=== PATIENT | female | born 1950 | race Caucasian/White ===

== ENCOUNTER → 2017-02-15 | Outpatient (CLI) | payer OTHER | LOC: BMCIMAGING 17:17 | PROVIDERS: ATTEND Emergency Medicine | DX: S99.911A Unspecified injury of right ankle, initial encounter (principal); M77.31 Calcaneal spur, right foot ==

== ENCOUNTER → 2017-03-06 | Outpatient (CLI) | payer OTHER | LOC: BMCIMAGING 10:54 | PROVIDERS: ATTEND Family Medicine | DX: M19.042 Primary osteoarthritis, left hand (principal); M17.0 Bilateral primary osteoarthritis of knee ==

== ENCOUNTER 2017-03-14 18:10 | Emergency (ER) | payer OTHER ==
[2017-03-14 18:20] VITALS: BP 111/61; PULSE 63; RESP 18; TEMP 98.1; O2SAT 96
--- NOTE | 2017-03-14 18:45 | EDPHY ---
H & P Stated Complaint: Intermittent ROBBINS >3 weeks;numerous other c/o HPI/ROS: CHIEF COMPLAINT: Migraine, near-syncope, slurred speech, diarrhea HISTORY OF PRESENT ILLNESS: Patient says she has a history of migraine headaches. Over the past 3 weeks she has had at least 2 weeks. They are preceded by an aura. There are [id number]. They last varying durations. There are un known triggers. She had 1 Monday and then again today. Today's was preceded by an aura but then different than previous migraines. She had some near syncope, nausea and diarrhea. She also had a brief period of slurred speech and difficulty remembering things. This has nearly resolved after taking Tylenol. She has no headache at this time. The spouse sitting next to her says that she had no facial droop. She had no weakness of 1 side of the body. Her concern is that she tumor as this is different from previous headaches. She has no other associated complaints or modifying factors. REVIEW OF SYSTEMS: Ten systems reviewed and are negative unless otherwise noted in the HPI PERTINENT MEDICAL HISTORY: Migraines, Shade's disease, thyroid dysfunction EXAMINATION General Appearance: Alert, no distress Head: normocephalic, atraumatic Eyes: Pupils equal and round, no conjunctival pallor or injection. EOMs intact. No nystagmus. No dysconjugate gaze. ENT, Mouth: Mucous membranes moist. Uvula midline. No erythema or edema. Neck: Normal inspection, supple, non-tender. No crepitus. Painless range of motion all planes. Respiratory: Lungs are clear to auscultation. No wheezing, rhonchi or crackles. Cardiovascular: Regular rate and rhythm. No murmur. Pulses intact distally. Gastrointestinal: Abdomen is soft and nontender Back: non-tender, no bony abnormalities Neurological: GCS 15. No facial droop. A&O, nonfocal, normal gait. Strength is symmetric in all 4 limbs. No pronator drift. No dysmetria. NIH stroke scale: 0 Skin: Warm and dry, no rash. No petechiae or purpura. Extremities: Nontender, no pedal edema Psychiatric: Mood and affect normal DIFFERENTIAL DIAGNOSES: Including but not limited to migraine, cephalgia, near syncope, vertigo CVA, TIA , dehydration MDM: 6:42 p.m. Migraine headache with aura that preceded it. The patient says the symptoms are worse than previous, she also had new symptoms of some slurred speech, diarrhea and near syncope. Neuro exam is well within normal limits. NIH stroke scale is 0 at this time. No chest pain. Vital signs stable. Laboratory studies and MRI have been ordered. 7:03 p.m. Notified by RN that the patient would like to speak to me. I have re-evaluated the patient at this time she is asking to be discharged home. She wants to cancel all laboratory studies an MRI. We had a very lengthy discussion regarding this. She says she feels fine at this time and does not want to stay for the studies. She says she wants to be discharged home. I informed her that while I think that everything is normal at this time, that there is no way for me to provide formal diagnoses without the tests that were ordered. We discussed the risks, benefits and alternatives. These include worsening of her scenario, TIA, stroke and . They are comfortable with assuming these risks. They will return to the emergency department should her symptoms return. I do feel that she is capable of making this decision at this time. Her spouse the next there is also comfortable with her going home at this time. Stroke follow-up with her established physician Dr. Zamora. She will return to the emergency department for any return of headache, nausea us, difficulty with speech or syncope. SUPERVISION: This patient was independently evaluated without direct examination by the attending physician. Case was discussed with attending physician. Source: Patient, Family, Old records Exam Limitations: No limitations - Personal History Current Tetanus Diphtheria and Acellular Pertussis (TDAP): Yes - Medical/Surgical History Hx Asthma: No Hx Chronic Respiratory Disease: No Hx Diabetes: No Hx Cardiac Disease: No Hx Renal Disease: No Hx Cirrhosis: No Hx Alcoholism: No Hx HIV/AIDS: No Hx Splenectomy or Spleen Trauma: No Other PMH: Hashimotos, hypothyroid, Addisons, - Social History Smoking Status: Never smoked Constitutional: Initial Vital Signs Temperature (C) 98.1 F 03/14/17 18:15 Heart Rate 63 03/14/17 18:15 Respiratory Rate 18 03/14/17 18:15 Blood Pressure 111/61 03/14/17 18:15 O2 Sat (%) 96 03/14/17 18:15 O2 Delivery Mode Room Air Allergies/Adverse Reactions: Penicillins Allergy (Mild, Verified 03/14/17 18:20) Rash Home Medications: Medication Instructions Recorded Levothyroxine [Synthroid 100 mcg 100 mcg PO DAILY 03/07/15 (*)] Fludrocortisone Acetate [Florinef] 0.1 mg PO BID #60 tab 03/13/15 Hydrocortisone [Cortef 10 mg (*)] 40 mg PO DAILY #30 tab 03/13/15 Departure - Departure Disposition: Home, Routine, Self-Care Clinical Impression: Near syncope Migraine Qualifiers: Migraine type: with aura Status migrainosus presence: without status migrainosus Intractability: not intractable Qualified Code(s): G43.109 - Migraine with aura, not intractable, without status migrainosus Condition: Good Instructions: Acute Headache (ED) Additional Instructions: Return to the emergency department should she change her mind regarding the workup. Return to the emergency department immediately for return of headache, facial droop, weakness, difficulty with speech, sensory changes. Referrals: Daria Arrington MD [Primary Care Provider] - As per Instructions
== END 2017-03-14 19:14 | disposition home or self-care (01) ==
DX: R55 Syncope and collapse (principal); G43.109 Migraine with aura, not intractable, without status migrainosus

== ENCOUNTER → 2017-04-11 | Outpatient (CLI) | payer OTHER ==
[~2017-04-11] MED LIST: GADOBUTROL 10 ML VIAL IVP ONE
== END ==
LOC: FIMAGING 14:52
PROVIDERS: ATTEND Psychiatry & Neurology Neurology
DX: R51 Headache (principal); R47.89 Other speech disturbances
CPT/HCPCS: 70549; 70551; A9585

== ENCOUNTER → 2017-04-17 | Outpatient (CLI) | payer OTHER | LOC: BMCIMAGING 10:58 | PROVIDERS: ATTEND Internal Medicine Endocrinology, Diabetes & Metabolism | DX: Z13.820 Encounter for screening for osteoporosis (principal); M85.80 Other specified disorders of bone density and structure, unspecified site; Z92.241 Personal history of systemic steroid therapy ==

== ENCOUNTER → 2017-07-22 | Outpatient (CLI) | payer OTHER | LOC: BMCIMAGING 13:44 | PROVIDERS: ATTEND Family Medicine | DX: M79.89 Other specified soft tissue disorders (principal); R04.0 Epistaxis ==

== ENCOUNTER 2017-09-16 14:13 | Emergency (ER) | payer OTHER ==
[2017-09-16 14:20] VITALS: O2SAT 93
--- NOTE | 2017-09-16 14:53 | EDPHY ---
H & P Stated Complaint: abd since last night, took hydrocortisone 20mg Time Seen by Provider: 09/16/17 14:52 - Personal History Current Tetanus Diphtheria and Acellular Pertussis (TDAP): Yes - Medical/Surgical History Hx Asthma: No Hx Chronic Respiratory Disease: No Hx Diabetes: No Hx Cardiac Disease: No Hx Renal Disease: No Hx Cirrhosis: No Hx Alcoholism: No Hx HIV/AIDS: No Hx Splenectomy or Spleen Trauma: No Other PMH: Hashimotos, hypothyroid, Addisons, - Social History Smoking Status: Never smoked Constitutional: Initial Vital Signs Temperature (C) 36.9 C 09/16/17 14:16 Heart Rate 82 09/16/17 14:16 Respiratory Rate 20 09/16/17 14:16 Blood Pressure 93/56 L 09/16/17 14:16 O2 Sat (%) 93 09/16/17 14:16 O2 Delivery Mode Room Air Allergies/Adverse Reactions: Penicillins Allergy (Mild, Verified 03/14/17 18:20) Rash Home Medications: Medication Instructions Recorded Levothyroxine [Synthroid 100 mcg 100 mcg PO DAILY 03/07/15 (*)] Fludrocortisone Acetate [Florinef] 0.1 mg PO BID #60 tab 03/13/15 Hydrocortisone [Cortef 10 mg (*)] 40 mg PO DAILY #30 tab 03/13/15 Cephalexin [Keflex (RX)] 500 mg PO TID #30 cap 09/16/17 Medical Decision Making - Diagnostics Imaging Results: Imaging Impressions Abdomen CT 09/16/17 15:13 Impression: 1. Normal CT appearance of the adrenal glands, kidneys, and appendix. 2. There are some subcentimeter hypodensities in the liver, which are too-small- to-characterize, but statistically represent tiny cysts or hamartomas. 3. Retroverted, retroverted flexed uterus with some periuterine venous varices, consistent with pelvic venous congestion. 4. Old compression deformities associated with T12 and L1, unchanged from 2012. Findings were discussed with Mario Wang MD at 16:34, on 09/16/2017. Study: CT of the abdomen Indication: Right lower quadrant tenderness Results: CT scan of the body parts was obtained. The results of the study are normal. The study was read by the radiologist, Dr. Hammond. I viewed the images myself on the PACS system. Imaging: Discussed imaging studies w/ call or contact centre operator Radiologist, I viewed and interpreted images myself ED Course/Re-evaluation: CHIEF COMPLAINT: Hypercortisolism and abdominal pain HISTORY OF PRESENT ILLNESS: The patient is a 67 y/o female with a history of Shade's disease and hypothyroidism complaining of hypercortisolism and abdominal pain. Last night, she began experiencing chills. This morning, she began experiencing abdominal pain and "feels like she is out of it". She has been experiencing some nasal congestion off and on for a few days. She has associated constipation. She denies history of abdominal surgery, vomiting, diarrhea, cough, sore throat, dysuria, polyuria, or other associated symptoms. She doubled her dose of glucocorticoid this morning without improvement. REVIEW OF SYSTEMS: A 10 point review of systems was performed and is negative with the exception of the elements mentioned in the history of present illness. PHYSICAL EXAM: HR, BP, O2 Sat, RR. Temp noted General Appearance: Alert, well hydrated, appropriate, and non-toxic appearing. Head: Atraumatic without scalp tenderness or obvious injury Eyes: Pupils equal, round, reactive to light and accommodation, EOMI, no trauma , no injection. Ears: Clear bilaterally, no perforation, normal landmarks Nose: Atraumatic, no rhinorrhea, clear. Throat: There is no erythema or exudates, no lesions, normal tonsils, mucus membranes moist. Neck: Supple, 2+ carotid upstroke, nontender, no lymphadenopathy. Respiratory: No retractions, no distress, no wheezes, and no accessory muscle use. Lungs are clear to auscultation bilaterally. Cardiovascular: Regular rate and rhythm, no murmurs, rubs, or gallops. Bilateral carotid, radial, dorsalis pedis, and posterior tibial pulses intact. Good capillary refill all extremities. Gastrointestinal: Abdominal pain localized to the lower half and worst in the right lower quadrant. Abdomen is soft, non-distended, no masses, no rebound, no guarding, no peritoneal signs. Musculoskeletal: Normal active ROM of all extremities, atraumatic. Neurological: Alert, appropriate, and interactive. The patient has normal DTRs and non-focal cranial nerves, motor, sensory, and cerebellar exam. Skin: No rashes, good turgor, no nodules on palpation. Past medical history: Harleton's disease, hypothyroidism Past surgical history: Denies Family history: Non-contributory Social history: and daughter at bedside, lives in [place], retired DIAGNOSTICS/PROCEDURES/CRITICAL CARE TIME: DIFFERENTIAL DIAGNOSIS: The differential diagnosis for the patient's abdominal pain included but was not limited to hypercortisolism, ovarian cyst, pelvic inflammatory disease, ovarian torsion, urinary tract infection, ectopic , cholecystitis, and appendicitis. MEDICAL DECISION MAKING: The patient is a 67 y/o female complaining of hypocortisolism and abdominal pain. She takes steroids and replacement hormones. She has abdominal tenderness that is worse in the lower right quadrant. She has associated constipation. Plan for labs, imaging, and 1 L fluid after labs if sodium is within normal range. 1601: Patient was concerned about the radiation from CT. I explained the risks of not having the CT and she decided to go forward with the imaging. 1652: I reassessed patient and informed her of the results of her work-up. I provided her with a course of antibiotics and instructed her to increase her glucocorticoids until she consults with her high school foreign language tutor. Follow-up instructions and return precautions given. - Data Points Laboratory Results: Laboratory Results 09/16/17 14:32 09/16/17 14:32 09/16/17 09/16/17 09/16/17 15:45 14:32 14:32 WBC 5.28 10^3/uL 10^3/uL (3.80-9.50) RBC 4.67 10^6/uL 10^6/uL (4.18-5.33) Hgb 14.4 g/dL g/dL (12.6-16.3) Hct 40.7 % % (38.0-47.0) MCV 87.2 fL fL (81.5-99.8) MCH 30.8 pg pg (27.9-34.1) MCHC 35.4 g/dL g/dL (32.4-36.7) RDW 13.1 % % (11.5-15.2) Plt Count 153 10^3/uL 10^3/uL (150-400) MPV 11.0 fL fL (8.7-11.7) Neut % (Auto) 63.5 % % (39.3-74.2) Lymph % (Auto) 18.6 % % (15.0-45.0) [place] % (Auto) 14.8 % H % (4.5-13.0) Eos % (Auto) 2.1 % % (0.6-7.6) Baso % (Auto) 0.8 % % (0.3-1.7) Nucleat RBC Rel Count 0.0 % % (0.0-0.2) Absolute Neuts (auto) 3.36 10^3/uL 10^3/uL (1.70-6.50) Absolute Lymphs (auto) 0.98 10^3/uL L 10^3/uL (1.00-3.00) Absolute Monos (auto) 0.78 10^3/uL 10^3/uL (0.30-0.80) Absolute Eos (auto) 0.11 10^3/uL 10^3/uL (0.03-0.40) Absolute Basos (auto) 0.04 10^3/uL 10^3/uL (0.02-0.10) Absolute Nucleated RBC 0.00 10^3/uL 10^3/uL (0-0.01) Immature Gran % 0.2 % % (0.0-1.1) Immature Gran # 0.01 10^3/uL 10^3/uL (0.00-0.10) Sodium 135 mEq/L mEq/L (134-144) Potassium 3.7 mEq/L mEq/L (3.5-5.2) Chloride 102 mEq/L mEq/L (97-110) Carbon Dioxide 20 mEq/l L mEq/l (22-31) Anion Gap 13 mEq/L mEq/L (8-16) BUN 20 mg/dL mg/dL (7-23) Creatinine 0.8 mg/dL mg/dL (0.6-1.0) Estimated GFR > 60 Glucose 107 mg/dL H mg/dL (70-100) Calcium 9.6 mg/dL mg/dL (8.5-10.4) Total Bilirubin 0.6 mg/dL mg/dL (0.1-1.4) Conjugated Bilirubin 0.0 mg/dL mg/dL (0.0-0.5) Unconjugated Bilirubin 0.6 mg/dL mg/dL (0.0-1.1) AST 29 IU/L IU/L (14-46) ALT 36 IU/L IU/L (9-52) Alkaline Phosphatase 85 IU/L IU/L (38-126) Total Protein 6.4 g/dL g/dL (6.3-8.2) Albumin 4.1 g/dL g/dL (3.5-5.0) Lipase 124 IU/L IU/L (23-300) Urine Color JENNIFER Urine Appearance HAZY Urine pH 7.0 (5.0-7.5) Ur Specific [place] 1.026 (1.002-1.030) Urine Protein 1+ H (NEGATIVE) Urine Ketones 1+ H (NEGATIVE) Urine Blood NEGATIVE (NEGATIVE) Urine Nitrate NEGATIVE (NEGATIVE) Urine Bilirubin NEGATIVE (NEGATIVE) Urine Urobilinogen NEGATIVE EU EU (0.2-1.0) Ur Leukocyte Esterase 3+ H (NEGATIVE) Urine RBC 3-5 /hpf H /hpf (0-3) Urine WBC 25-50 /hpf H /hpf (0-3) Ur Epithelial Cells 2+ /lpf H /lpf (NONE-1+) Urine Mucus 1+ /lpf /lpf (NONE-1+) Urine Glucose NEGATIVE (NEGATIVE) Medications Given: Discontinued Medications Hydromorphone HCl (Dilaudid) 1 mg IVP EDNOW ONE Stop: 09/16/17 15:11 Last Admin: 09/16/17 15:43 Dose: Not Given Ondansetron HCl (Zofran) 4 mg IVP EDNOW ONE Stop: 09/16/17 15:11 Last Admin: 09/16/17 15:43 Dose: Not Given Departure - Departure Disposition: Home, Routine, Self-Care Clinical Impression: Adrenal insufficiency (Shade's disease) UTI (urinary tract infection) Qualifiers: Urinary tract infection type: site unspecified Hematuria presence: without hematuria Qualified Code(s): N39.0 - Urinary tract infection, site not specified Condition: Good Instructions: Urinary Tract Infection in Women (ED), Shade Disease (ED) Additional Instructions: 1. Take the full course of antibiotics. Continue taking even if you experience improvement before the course is complete. 2. Increase glucocorticoids as needed until you discuss with your high school foreign language tutor. 3. Follow-up with your primary care provider for unimproved symptoms in 2-3 days. 4. Return to the ED for worsening of condition. Referrals: Daria Arrington MD [Primary Care Provider] - As per Instructions Prescriptions: Cephalexin [Keflex (RX)] 500 mg PO TID #30 cap Report Scribed for: Mario Wang Report Scribed by: Robina Henry Date of Report: 09/16/17 Time of Report: 16:13
[2017-09-16] MEDS ORDERED: ONDANSETRON 4 MG/2 ML VIAL IVP ONE (15:10)
[2017-09-16] MEDS ORDERED: HYDROmorphONE/DILAUDID 1 MG/ML INJ IVP ONE (15:10)
[2017-09-16 15:20] LABS: % IMMATURE GRANULYOCYTES 0.2 % (0.0-1.1); ABSOLUTE IMMATURE GRANULOCYTES 0.01 10^3/uL (0.00-0.10); ADD DIFF? NO; ADD MORPH? NO; ADD SCAN? NO; ATYPICAL LYMPHOCYTE FLAG 30 (0-99); FRAGMENT RBC FLAG 0 (0-99); HEMATOCRIT 40.7 % (38.0-47.0); HEMOGLOBIN 14.4 g/dL (12.6-16.3); LEFT SHIFT FLG 0 (0-99); LIPEMIA HEMOLYSIS FLAG 90 (0-99); MEAN CELL HEMOGLOBIN 30.8 pg (27.9-34.1); MEAN CELL HEMOGLOBIN CONCENTR. 35.4 g/dL (32.4-36.7); MEAN CELL VOLUME 87.2 fL (81.5-99.8); PLATELET CLUMPS FLAG 20 (0-99); PLATELET COUNT 153 10^3/uL (150-400); RED BLOOD CELL COUNT 4.67 10^6/uL (4.18-5.33); RED CELL DISTRIBUTION WIDTH 13.1 % (11.5-15.2)
[2017-09-16] MEDS ORDERED: IOPAMIDOL (ISOVUE-300) 100 ML BTL ONE (15:21)
[2017-09-16 15:33] LABS: ALANINE AMINOTRANSFERASE 36 IU/L (9-52); ALBUMIN 4.1 g/dL (3.5-5.0); ALKALINE PHOSPHATASE 85 IU/L (38-126); ANION GAP 13 mEq/L (8-16); ASPARTATE AMINOTRANSFERASE 29 IU/L (14-46); BILIRUBIN,TOTAL 0.6 mg/dL (0.1-1.4); BILIRUBIN-UNCONJUGATED 0.6 mg/dL (0.0-1.1); CALCIUM 9.6 mg/dL (8.5-10.4); CARBON DIOXIDE 20 mEq/l (22-31); CHLORIDE 102 mEq/L (97-110); CREATININE 0.8 mg/dL (0.6-1.0); GLOMERULAR FILTRATION RATE > 60; GLUCOSE 107 mg/dL (70-100); POTASSIUM 3.7 mEq/L (3.5-5.2); SODIUM 135 mEq/L (134-144); TOTAL PROTEIN 6.4 g/dL (6.3-8.2)
[2017-09-16 15:53] LABS: COLOR AMBER; LEUKOCYTE ESTERASE,URINE 3+ (NEGATIVE); NITRITE,URINE NEGATIVE (NEGATIVE)
[2017-09-16 16:01] LABS: MUCUS 1+ /lpf (NONE-1+); WBC,URINE 25-50 /hpf (0-3)
[2017-09-16 17:20] VITALS: BP 110/65; PULSE 68; RESP 15; TEMP 99.3
== END 2017-09-16 17:28 | disposition home or self-care (01) ==
DX: E27.40 Unspecified adrenocortical insufficiency (principal); N39.0 Urinary tract infection, site not specified
CPT/HCPCS: 74177; 99285; Q9967; J1170; J2405

== ENCOUNTER 2017-09-17 11:52 | Observation (INO) | payer OTHER ==
[2017-09-17] MEDS ORDERED: NS 1,000 ML IV ONE (12:47)
--- NOTE | 2017-09-17 12:48 | EDPHY ---
HPI/HX/ROS/PE/MDM Narrative: CHIEF COMPLAINT: Dehydration, loss of appetite, cough HPI: The patient is a 67 y/o female with a history of Riverside's disease and hypothyroidism complaining of dehydration, loss of appetite, and cough. She was seen yesterday for abdominal pain and hypocortisolism and was diagnosed with a UTI after an abdominal CT. She was sent home with Keflex and instructed to increase glucocorticoids until she was able to consult with her automotive product specialist. Since going home yesterday she has had a loss of appetite and has not been drinking water or eating food and as such has not been able to have her steroids. She has an associated cough, dry mouth, and weakness. She denies pain or other associated symptoms. REVIEW OF SYSTEMS: Aside from elements discussed in the HPI, a comprehensive 10-point review of systems was reviewed and is negative. PMH: Riverside's disease, hypothyroidism, UTI diagnosed yesterday (09/16/17) SOCIAL HISTORY: at bedside, lives in [place], retired PHYSICAL EXAM: General:Patient is alert, appears somewhat lethargic and dehydrated ENT:Eyes are normal to inspection. ENT inspection normal. Dry mucus membranes. Neck: Normal inspection. Full range of motion. No meningeal signs. Respiratory: No respiratory distress. Breath sounds normal bilaterally. Cardiovascular: Regular rate and rhythm. Normal cap refill. Abdomen:The abdomen is nontender to palpation. There are no peritoneal signs. There are normal bowel sounds. Back: Normal to inspection. No tenderness to palpation. Skin: Normal color. No rash. Warm and dry. Extremities: Normal appearance. Full range of motion. Neuro: Oriented x3. Normal motor function. Normal sensory function. ED Course: Study: X-ray of the chest Indication: Cough Results: X-ray of the chest was obtained. The results of the study are: negative for acute processes The study was read by the radiologist, Dr. Anderson. I viewed the images myself on the PACS system. 1340: Patient tested positive for influenza. I plan to discuss results with her and her to determine if they feel comfortable providing care at home or would prefer admission. 1349: I reassessed patient and discussed results of workup. I presented her with the option to be admitted or return home. She would like to be admitted for further treatment. Plan for admission. 1408: I spoke to hospitalist service regarding admission for this patient. Dr. Michelle will be admitting doctor and will order steroids. MDM: This patient presents with signs and symptoms of influenza, confirmed by PCR. Her condition is complicated by UTI and history of Addisons' disease, and the combination appears to be making her quite dehydrated and unable to take oral meds for UTI and steroid replacement. She was given IVNS in the ED but remains somewhat ill-appearing and nauseated. I think she would benefit from continued IV hydration, IV steroid replacement and observation. Her lactate and CXR are normal, so I think severe sepsis, septic shock and PNA are all unlikely. - Data Points Imaging Results: Imaging Impressions Chest X-Ray 09/17/17 12:58 Impression: Negative chest.. Imaging: Discussed imaging studies w/ call or contact centre operator Radiologist, I viewed and interpreted images myself Laboratory Results: Laboratory Results 09/17/17 12:45 09/17/17 12:45 09/17/17 09/17/17 09/17/17 13:00 13:00 12:45 WBC RBC Hgb Hct MCV MCH MCHC RDW Plt Count MPV Neut % (Auto) Lymph % (Auto) [place] % (Auto) Eos % (Auto) Baso % (Auto) Nucleat RBC Rel Count Absolute Neuts (auto) Absolute Lymphs (auto) Absolute Monos (auto) Absolute Eos (auto) Absolute Basos (auto) Absolute Nucleated RBC Immature Gran % Immature Gran # VBG Lactic Acid 1.0 mmol/L mmol/L (0.7-2.1) Sodium 134 mEq/L mEq/L (134-144) Potassium 3.3 mEq/L L mEq/L (3.5-5.2) Chloride 100 mEq/L mEq/L (97-110) Carbon Dioxide 19 mEq/l L mEq/l (22-31) Anion Gap 15 mEq/L mEq/L (8-16) BUN 17 mg/dL mg/dL (7-23) Creatinine 0.9 mg/dL mg/dL (0.6-1.0) Estimated GFR > 60 Glucose 68 mg/dL L mg/dL (70-100) Calcium 9.1 mg/dL mg/dL (8.5-10.4) Nasal Influenza A PCR FLU A DETECTED H (NEGATIVE) Nasal Influenza B PCR NEGATIVE FOR FLU B (NEGATIVE) 09/17/17 12:45 WBC 6.03 10^3/uL 10^3/uL (3.80-9.50) RBC 4.70 10^6/uL 10^6/uL (4.18-5.33) Hgb 14.9 g/dL g/dL (12.6-16.3) Hct 41.1 % % (38.0-47.0) MCV 87.4 fL fL (81.5-99.8) MCH 31.7 pg pg (27.9-34.1) MCHC 36.3 g/dL g/dL (32.4-36.7) RDW 13.2 % % (11.5-15.2) Plt Count 136 10^3/uL L 10^3/uL (150-400) MPV 10.4 fL fL (8.7-11.7) Neut % (Auto) 59.7 % % (39.3-74.2) Lymph % (Auto) 25.7 % % (15.0-45.0) [place] % (Auto) 13.4 % H % (4.5-13.0) Eos % (Auto) 0.5 % L % (0.6-7.6) Baso % (Auto) 0.5 % % (0.3-1.7) Nucleat RBC Rel Count 0.0 % % (0.0-0.2) Absolute Neuts (auto) 3.60 10^3/uL 10^3/uL (1.70-6.50) Absolute Lymphs (auto) 1.55 10^3/uL 10^3/uL (1.00-3.00) Absolute Monos (auto) 0.81 10^3/uL H 10^3/uL (0.30-0.80) Absolute Eos (auto) 0.03 10^3/uL 10^3/uL (0.03-0.40) Absolute Basos (auto) 0.03 10^3/uL 10^3/uL (0.02-0.10) Absolute Nucleated RBC 0.00 10^3/uL 10^3/uL (0-0.01) Immature Gran % 0.2 % % (0.0-1.1) Immature Gran # 0.01 10^3/uL 10^3/uL (0.00-0.10) VBG Lactic Acid Sodium Potassium Chloride Carbon Dioxide Anion Gap BUN Creatinine Estimated GFR Glucose Calcium Nasal Influenza A PCR Nasal Influenza B PCR Medications Given: Acetaminophen (Tylenol) 650 mg PO Q4HRS PRN PRN Reason: Pain, Mild/Fever, Can Take PO Stop: 03/16/18 14:36 Last Admin: 09/17/17 15:11 Dose: 650 mg Discontinued Medications Sodium Chloride (Ns) 1,000 mls @ 0 mls/hr IV EDNOW ONE; Wide Open PRN Reason: Protocol Stop: 09/17/17 12:48 Last Admin: 09/17/17 12:50 Dose: 1,000 mls General Time Seen by Provider: 09/17/17 12:43 Initial Vital Signs: Initial Vital Signs Temperature (C) 37.1 C 09/17/17 11:58 Heart Rate 105 H 09/17/17 11:58 Respiratory Rate 16 09/17/17 11:58 Blood Pressure 117/78 09/17/17 11:58 O2 Sat (%) 90 L 09/17/17 11:58 O2 Delivery Mode Room Air Allergies/Adverse Reactions: Penicillins Allergy (Mild, Verified 03/14/17 18:20) Rash Home Medications: Medication Instructions Recorded Fludrocortisone Acetate [Florinef] 0.1 mg PO DAILY 09/17/17 Hydrocortisone [Cortef 10 mg (*)] 10 mg PO DAILY 09/17/17 Levothyroxine [Synthroid 112 mcg 112 mcg PO DAILY06 09/17/17 (*)] Acetaminophen [Tylenol 325mg (*)] 650 mg PO Q4HRS PRN tab 09/18/17 Oseltamivir Phosphate [Tamiflu 75 75 mg PO BIDMEAL #7 cap 09/18/17 mg (*)] guaiFENesin [Mucinex 600 MG (*)] 600 mg PO BID tab.er 09/18/17 Departure - Departure Disposition: [facility] Clinical Impression: Influenza, Shade's disease, Dehydration Condition: Fair Report Scribed for: Pierre Villanueva Report Scribed by: Robina Henry Date of Report: 09/17/17 Time of Report: 12:48 Physician Review and Approval Statement: Portions of this note were transcribed by an ED scribe. I personally performed the history, physical exam, and medical decision making; and confirm the accuracy of the information in the transcribed note.
[2017-09-17 12:56] LABS: % IMMATURE GRANULYOCYTES 0.2 % (0.0-1.1); ABSOLUTE IMMATURE GRANULOCYTES 0.01 10^3/uL (0.00-0.10); ADD DIFF? NO; ADD MORPH? NO; ADD SCAN? NO; ATYPICAL LYMPHOCYTE FLAG 0 (0-99); FRAGMENT RBC FLAG 0 (0-99); HEMATOCRIT 41.1 % (38.0-47.0); HEMOGLOBIN 14.9 g/dL (12.6-16.3); LEFT SHIFT FLG 0 (0-99); LIPEMIA HEMOLYSIS FLAG 90 (0-99); MEAN CELL HEMOGLOBIN 31.7 pg (27.9-34.1); MEAN CELL HEMOGLOBIN CONCENTR. 36.3 g/dL (32.4-36.7); MEAN CELL VOLUME 87.4 fL (81.5-99.8); MEAN PLATELET VOLUME 10.4 fL (8.7-11.7); PLATELET CLUMPS FLAG 30 (0-99); PLATELET COUNT 136 10^3/uL (150-400); RED CELL DISTRIBUTION WIDTH 13.2 % (11.5-15.2)
[2017-09-17 13:16] LABS: ANION GAP 15 mEq/L (8-16); CALCIUM 9.1 mg/dL (8.5-10.4); CARBON DIOXIDE 19 mEq/l (22-31); CHLORIDE 100 mEq/L (97-110); CREATININE 0.9 mg/dL (0.6-1.0); GLOMERULAR FILTRATION RATE > 60; GLUCOSE 68 mg/dL (70-100); POTASSIUM 3.3 mEq/L (3.5-5.2); SODIUM 134 mEq/L (134-144)
[2017-09-17 13:35] LABS: PRINT OR CALL CRITICALS C
[2017-09-17] MEDS ORDERED: ONDANSETRON 4 MG/2 ML VIAL IVP PRN (14:37)
[2017-09-17] MEDS ORDERED: oxyCODONE IR 5 MG TAB PO PRN (14:37)
[2017-09-17] MEDS ORDERED: PROMETHAZINE HCL 25 MG/ML INJ IVP PRN (14:37)
[2017-09-17] MEDS ORDERED: ONDANSETRON DISINTEGRATING 4 MG TAB PO PRN (14:37)
--- NOTE | 2017-09-17 14:44 | PDGENHP ---
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 She initially was seen in the ER yesterday for these sxs, an abd CT was performed as was a UA. UA was notable for slightly elevated wbc and she was treated for UTI with home rx for keflex. She also was instructed to double her dose of hydrocortisone for possible trigger of AI. Despite doing that, she felt worse over the following 24 hours. Continued abdominal pain, inability to take PO and fever. Today she was unable to take any of her meds due to abdominal pain as well as n/v. She notes these sxs are similar to her prior bouts of AI. She has not been around anyone sick. She did not get a flu shot this year. History Information - Allergies/Home Medication List Allergies/Adverse Reactions: Penicillins Allergy (Mild, Verified 03/14/17 18:20) Rash Home Medications: Fludrocortisone Acetate [Florinef] 0.1 mg PO DAILY 09/17/17 [Last Taken 09/16/17 ] Hydrocortisone [Cortef 10 mg (*)] 10 mg PO DAILY 09/17/17 [Last Taken 09/16/17] Levothyroxine [Synthroid 112 mcg (*)] 112 mcg PO DAILY06 09/17/17 [Last Taken ] I have personally reviewed and updated: family history, medical history, social history, surgical history - Past Medical History Additional medical history: Loami's disease. hypothyroid. chronic sacral/ knee pain. T12/L1 compression injuries - Surgical History Reports: no pertinent surgical hx - Family History Additional family history: Mother in her 80s, complications of dementia - Social History Smoking Status: Never smoked Alcohol Use: Rarely Drug Use: None Additional social history: , 2 children, retired Review of Systems Review of Systems: ROS: 10pt was reviewed & negative except for what was stated in HPI & below Physical Exam Physical Exam: Temp Pulse Resp BP Pulse Ox 38.8 C H 94 20 117/67 95 09/17/17 14:33 09/17/17 14:33 09/17/17 14:33 09/17/17 14:33 09/17/17 14:33 Constitutional: appears nourished, uncomfortable Eyes: PERRL, anicteric sclera Ears, Nose, Mouth, Throat: hearing normal, dry mucous membranes Cardiovascular: regular rate and rhythym, no murmur, rub, or gallop, No edema Respiratory: no respiratory distress, no rales or rhonchi Gastrointestinal: normoactive bowel sounds, tenderness, No guarding, No rebound , No distension Genitourinary: no bladder tenderness Skin: warm, normal color Musculoskeletal: no muscle tenderness Neurologic: AAOx3 Psychiatric: not anxious, flat affect, other (minimally interactive) Lab Data & Imaging Review 09/17/17 12:45 09/17/17 12:45 WBC 6.03 10^3/uL (3.80-9.50) 09/17/17 12:45 RBC 4.70 10^6/uL (4.18-5.33) 09/17/17 12:45 Hgb 14.9 g/dL (12.6-16.3) 09/17/17 12:45 Hct 41.1 % (38.0-47.0) 09/17/17 12:45 MCV 87.4 fL (81.5-99.8) 09/17/17 12:45 MCH 31.7 pg (27.9-34.1) 09/17/17 12:45 MCHC 36.3 g/dL (32.4-36.7) 09/17/17 12:45 RDW 13.2 % (11.5-15.2) 09/17/17 12:45 Plt Count 136 10^3/uL (150-400) L 09/17/17 12:45 MPV 10.4 fL (8.7-11.7) 09/17/17 12:45 Neut % (Auto) 59.7 % (39.3-74.2) 09/17/17 12:45 Lymph % (Auto) 25.7 % (15.0-45.0) 09/17/17 12:45 Maries % (Auto) 13.4 % (4.5-13.0) H 09/17/17 12:45 Eos % (Auto) 0.5 % (0.6-7.6) L 09/17/17 12:45 Baso % (Auto) 0.5 % (0.3-1.7) 09/17/17 12:45 Nucleat RBC Rel Count 0.0 % (0.0-0.2) 09/17/17 12:45 Absolute Neuts (auto) 3.60 10^3/uL (1.70-6.50) 09/17/17 12:45 Absolute Lymphs (auto) 1.55 10^3/uL (1.00-3.00) 09/17/17 12:45 Absolute Monos (auto) 0.81 10^3/uL (0.30-0.80) H 09/17/17 12:45 Absolute Eos (auto) 0.03 10^3/uL (0.03-0.40) 09/17/17 12:45 Absolute Basos (auto) 0.03 10^3/uL (0.02-0.10) 09/17/17 12:45 Absolute Nucleated RBC 0.00 10^3/uL (0-0.01) 09/17/17 12:45 Immature Gran % 0.2 % (0.0-1.1) 09/17/17 12:45 Immature Gran # 0.01 10^3/uL (0.00-0.10) 09/17/17 12:45 VBG Lactic Acid 1.0 mmol/L (0.7-2.1) 09/17/17 13:00 Sodium 134 mEq/L (134-144) 09/17/17 12:45 Potassium 3.3 mEq/L (3.5-5.2) L 09/17/17 12:45 Chloride 100 mEq/L (97-110) 09/17/17 12:45 Carbon Dioxide 19 mEq/l (22-31) L 09/17/17 12:45 Anion Gap 15 mEq/L (8-16) 09/17/17 12:45 BUN 17 mg/dL (7-23) 09/17/17 12:45 Creatinine 0.9 mg/dL (0.6-1.0) 09/17/17 12:45 Estimated GFR > 60 09/17/17 12:45 Glucose 68 mg/dL (70-100) L 09/17/17 12:45 Calcium 9.1 mg/dL (8.5-10.4) 09/17/17 12:45 Nasal Influenza A PCR FLU A DETECTED (NEGATIVE) H 09/17/17 13:00 Nasal Influenza B PCR NEGATIVE FOR FLU B (NEGATIVE) 09/17/17 13:00 Visualized and Interpreted Chest x-ray results: Yes Chest X-Ray results: no infiltrate Visualized and Interpreted imaging results: Yes Interpretation: abd CT from 09/16/17: subcentimeter hypodensities in liver. - pelvic venous congestion. 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 Starting tamiflu. # Loami's disease/acute adrenal insufficiency: without evidence of adrenal crisis however patient having s/s suggestive of acute on chronic adrenal insufficiency with abdominal pain, low glucose, hypokalemia. Na normal and BP low but within her usual range. Will start stress dose steroids for today, likely can go back to oral hydrocortisone in am with a quick taper back to home dose of 10mg. She is followed by endocrinology as an OP. # pyuria: UA yesterday in ER showing elevated wbc but also 2+ epithelial cells more suggestive of dirty catch. Was started on abx for presumed UTI but no culture drawn prior to abx. Will obtain urine culture (may not be useful given abx already given) and plan to treat for only 3 days unless culture concerning # hypothyroid: will continue home medications # ppx: scds for now, suspect patient will be ready for dc in am, if longer than 24 hr stay would start LMWH # dispo: observation status, suspect patient will require < 48 hours stay for eval/mgmt of above Patient new to my care. Old records reviewed and summarized as above. Care plan reviewed with ER doctor including plans for steroids.
[2017-09-17] MEDS ORDERED: NS 1,000 ML IV SCH (14:45)
[2017-09-17] MEDS ORDERED: PROTOCOL POTASSIUM 1 DOSE MISC PRN (14:55)
[2017-09-17] MEDS ORDERED: PROTOCOL MAGNESIUM 1 DOSE IV PRN (14:55)
[2017-09-17] MEDS ORDERED: ACETAMINOPHEN 325 MG TAB ONE (15:10)
[2017-09-17] MEDS: ACETAMINOPHEN 325 MG TAB PO PRN ×2 (15:11→19:48)
[2017-09-17] MEDS ORDERED: HYDROCORTISONE 100 MG/2 ML VIAL ONE (15:14)
[2017-09-17] MEDS: HYDROCORTISONE 100 MG/2 ML VIAL IVP SCH ×2 (15:24→21:45)
--- NOTE | 2017-09-17 15:44 | ASMTCMCOM ---
CM Note CM Note Notes: Patient admitted for influenza, UTI and Shade's disease management. Patient presented to the ED yesterday and was discharge home with . Patient returned to ED today for dehydration, malaise,fever, weakness. Anticipate pt to dc home with once medically stable. Pt's PCP is Dr. Daria Arrington. CM to follow. Date Signed: 09/17/2017 03:44 PM Electronically Signed By:María aSnz RN
[2017-09-17] MEDS: CEPHALEXIN 500 MG CAP PO SCH ×2 (16:20→21:32)
[2017-09-17] MEDS ORDERED: SODIUM CL NASAL GEL 14.1 GM TUBE TP PRN (16:34)
[2017-09-17] MEDS: MAGNESIUM SULF 1 GM/DEXTROSE 100 ML IV ONE ×2 (16:45→16:50)
[2017-09-17] MEDS ORDERED: POTASSIUM Cl (KCl) 100 ML IV SCH (16:45)
[2017-09-17] MEDS: OSELTAMIVIR PHOSPHATE 75 MG CAP PO SCH ×2 (16:46→17:22)
[2017-09-17] MEDS: guaiFENesin 600 MG TAB.ER PO SCH ×2 (18:04→21:33)
[2017-09-17] MEDS: POTASSIUM Cl (KCl) 10 MEQ in NS 100 ML IV SCH ×3 (18:04→23:17)
[2017-09-17 19:13] LABS: POTASSIUM 3.5 mEq/L (3.5-5.2)
[2017-09-17] MEDS: OXYMETAZOLINE 30 ML NASAL SPRAY EACHNARE SCH ×2 (20:02→22:08)
[2017-09-17] MEDS ORDERED: HYDROCORTISONE 100 MG/2 ML VIAL IVP SCH (22:00)
[2017-09-17 23:14] VITALS: RESP 16
[2017-09-18 05:08] LABS: % IMMATURE GRANULYOCYTES 0.5 % (0.0-1.1); ABSOLUTE IMMATURE GRANULOCYTES 0.02 10^3/uL (0.00-0.10); ADD DIFF? NO; ADD MORPH? NO; ADD SCAN? NO; ATYPICAL LYMPHOCYTE FLAG 0 (0-99); FRAGMENT RBC FLAG 0 (0-99); HEMATOCRIT 39.6 % (38.0-47.0); HEMOGLOBIN 14.1 g/dL (12.6-16.3); LEFT SHIFT FLG 0 (0-99); LIPEMIA HEMOLYSIS FLAG 90 (0-99); MEAN CELL HEMOGLOBIN 31.4 pg (27.9-34.1); MEAN CELL HEMOGLOBIN CONCENTR. 35.6 g/dL (32.4-36.7); MEAN CELL VOLUME 88.2 fL (81.5-99.8); MEAN PLATELET VOLUME 10.6 fL (8.7-11.7); PLATELET CLUMPS FLAG 0 (0-99); PLATELET COUNT 128 10^3/uL (150-400); RED BLOOD CELL COUNT 4.49 10^6/uL (4.18-5.33); RED CELL DISTRIBUTION WIDTH 12.7 % (11.5-15.2)
[2017-09-18] MEDS: HYDROCORTISONE 100 MG/2 ML VIAL IVP SCH ×2 (05:30→14:17)
[2017-09-18 05:40] LABS: ANION GAP 13 mEq/L (8-16); CALCIUM 8.6 mg/dL (8.5-10.4); CARBON DIOXIDE 19 mEq/l (22-31); CHLORIDE 103 mEq/L (97-110); CREATININE 0.7 mg/dL (0.6-1.0); GLOMERULAR FILTRATION RATE > 60; GLUCOSE 118 mg/dL (70-100); POTASSIUM 4.6 mEq/L (3.5-5.2); SODIUM 135 mEq/L (134-144)
[2017-09-18] MEDS ORDERED: LEVOTHYROXINE 112 MCG TAB PO SCH (06:00)
[2017-09-18] MEDS: guaiFENesin 600 MG TAB.ER PO SCH (08:06)
[2017-09-18] MEDS: CEPHALEXIN 500 MG CAP PO SCH (08:06)
[2017-09-18] MEDS: OSELTAMIVIR PHOSPHATE 75 MG CAP PO SCH (08:06)
[2017-09-18] MEDS: OXYMETAZOLINE 30 ML NASAL SPRAY EACHNARE SCH (08:07)
[2017-09-18] MEDS ORDERED: FLUDROCORTISONE ACETATE 0.1 MG TAB PO SCH ×2 (09:00→15:21)
[2017-09-18 11:33] VITALS: BP 91/61; TEMP 98.2
[2017-09-18 14:38] VITALS: PULSE 62; O2SAT 93
--- NOTE | 2017-09-19 03:34 | GDS ---
[f rep st] DISCHARGE SUMMARY DISCHARGE DIAGNOSIS: Influenza A. PHYSICAL EXAM: GENERAL: The patient is alert. VITAL SIGNS: Afebrile at 36.8, pulse is 62, respira tory rate 16, blood pressure 91/61. She is saturating 93% on room air. I have seen and evaluated the patient on the day of discharge. HOSPITAL COURSE: Ms. Metcalf is a 67-year-old female with a history of Maxwell disease, presented to [facility] emergency room with complaints of abdominal pain with malaise and fever. She was evaluated and di agnosed with influenza A. during this hospitalization, she was started on Tamiflu. She also receive d stress dose of Solu-Cortef for her Shade disease. She is significantly feeling better. She will continue a double dose of her steroid tomorrow and return to her regular dose on Monday. She has been treated for a possible urinary infection with no further intervention warranted. The patient w ill be discharged home independently. Blood culture as well as urine culture are pending at the time of disposition. She will follow with her primary care physician. DISCHARGE MEDICATIONS: I have provided the patient a prescription for Tamiflu with no other changes to the patient's previously prescribed home medications other than the above-noted. /[id number]/MODL
--- NOTE | 2017-09-19 09:42 | ASDISCHSUM ---
Discharge Information Plan Status:Home with No Needs Medically Cleared to Leave:09/17/2017 Discharge Date:09/18/2017 03:30 PM CM D/C Disposition: ADT D/C Disposition:Home, Routine, Self-Care Projected Discharge Date:09/18/2017 12:00 AM Transportation at D/C: Discharge Delay Reason: Follow-Up Date:09/18/2017 12:00 AM Discharge Slot: Final Diagnosis: Placement Information Patient Contact Information Contact Name:LITO Relationship: Address:[address] Home Phone: City:[place] Alternate Phone: [facility]/Zip Code:[place] [address] Email: Financial Information Financial Class: Primary Plan Desc:MEDICARE OUTPATIENT Primary Plan Number:[id number] Secondary Plan Desc:[facility] Secondary Plan Number:[id number] Assessment Information LACE LACE Acuity / Level of Care Answers: Was the patient admitted to hospital via the emergency department? Yes: Emergency dept visits in Answers: 1 last 6 months Score: 4 Date Signed: 09/17/2017 03:40 PM Electronically Signed By:María Sanz RN [facility] Progress Note CM Note CM Note Notes: Patient admitted for influenza, UTI and [place]'s disease management. Patient presented to the ED yesterday and was discharge home with . Patient returned to ED today for dehydration, malaise,fever, weakness. Anticipate pt to dc home with once medically stable. Pt's PCP is Dr. Daria Arrington. CM to follow. Date Signed: 09/17/2017 03:44 PM Electronically Signed By:María Sanz RN Intervention Information Intervention Type:*RUGGIERO-Signed Date of Service:09/18/2017 09:29 AM Patient Type:Observation Staff Member:Shanda Zayas Hours: Discipline: Severity: Comment:
== END 2017-09-18 15:30 | disposition home or self-care (01) ==
LOC: F3E 15:36
PROVIDERS: ADMIT Internal Medicine; ATTEND Internal Medicine
DX: J10.1 Influenza due to other identified influenza virus with other respiratory manifestations (principal); E27.1 Primary adrenocortical insufficiency; E03.9 Hypothyroidism, unspecified; R82.71 Bacteriuria
CPT/HCPCS: 71020; 97161; G0378; G8978; G8979; G8980; J2405; J3475

== ENCOUNTER → 2018-08-13 | Outpatient (CLI) | payer OTHER | LOC: BMCIMAGING 12:53 | PROVIDERS: ATTEND Family Medicine | DX: M47.897 Other spondylosis, lumbosacral region (principal); M46.97 Unspecified inflammatory spondylopathy, lumbosacral region; M53.3 Sacrococcygeal disorders, not elsewhere classified ==

== ENCOUNTER 2019-01-11 09:47 | Emergency (ER) | payer OTHER ==
--- NOTE | 2019-01-11 10:04 | EDPHY ---
H & P Time Seen by Provider: 01/11/19 10:04 - Medical/Surgical History Hx Asthma: No Hx Chronic Respiratory Disease: No Hx Diabetes: No Hx Cardiac Disease: No Hx Renal Disease: No Hx Cirrhosis: No Hx Alcoholism: No Hx HIV/AIDS: No Hx Splenectomy or Spleen Trauma: No Other PMH: Hashimotos, hypothyroid, Addisons, - Social History Smoking Status: Never smoked Constitutional: Initial Vital Signs Temperature (C) 36.3 C 01/11/19 10:05 Heart Rate 88 01/11/19 10:05 Respiratory Rate 17 01/11/19 10:05 Blood Pressure 95/63 L 01/11/19 10:05 O2 Sat (%) 99 01/11/19 10:05 O2 Delivery Mode Room Air Allergies/Adverse Reactions: Penicillins Allergy (Mild, Verified 01/11/19 10:01) Rash Home Medications: Medication Instructions Recorded Fludrocortisone Acetate [Florinef] 0.1 mg PO DAILY 09/17/17 Hydrocortisone [Cortef 10 mg (*)] 10 mg PO DAILY 09/17/17 Levothyroxine [Synthroid 112 mcg 112 mcg PO DAILY06 09/17/17 (*)] guaiFENesin [Mucinex 600 MG (*)] 600 mg PO BID tab.er 09/18/17 Ondansetron Odt [Zofran Odt 4 mg 4 mg PO Q4 PRN #10 tab 01/11/19 (RX)] Medical Decision Making ED Course/Re-evaluation: CHIEF COMPLAINT: Goldsboro's flare, nausea, vomiting HISTORY OF PRESENT ILLNESS: The patient is a 68 y/o female with a history of Goldsboro's disease and Wai 's complaining of an Goldsboro's attack after developing a stomach flu. The patient started having nausea, vomiting, and diarrhea. However, since her symptoms began she started having an Goldsboro's attack. She presented to the emergency department for a steroid shot and is also requesting an H2 silke or PPI to buffer her intestinal tract. No fever, headache, body aches, lightheadedness, chest pain, heart palpitations, shortness of breath, cough, urinary complaints, numbness, paresthesias. REVIEW OF SYSTEMS: A comprehensive 10 system review of systems is otherwise negative aside from elements mentioned in the history of present illness and medical decision making. PHYSICAL EXAM: HR, BP, O2 Sat, RR. Temp noted General Appearance: Anxious, alert, well hydrated, appropriate, and non-toxic appearing. Head: Atraumatic without scalp tenderness or obvious injury Eyes: Pupils equal, round, reactive to light and accommodation, EOMI, no trauma , no injection. Ears: Clear bilaterally, no perforation, normal landmarks Nose: Atraumatic, no rhinorrhea, clear. Throat: There is no erythema or exudates, no lesions, normal tonsils, mucus membranes moist. Neck: Supple, 2+ carotid upstroke, nontender, no lymphadenopathy. Respiratory: No retractions, no distress, no wheezes, and no accessory muscle use. Lungs are clear to auscultation bilaterally. Cardiovascular: Regular rate and rhythm, no murmurs, rubs, or gallops. Bilateral carotid, radial, dorsalis pedis, and posterior tibial pulses intact. Good capillary refill all extremities. Gastrointestinal: Abdomen is soft, nontender, non-distended, no masses, no rebound, no guarding, no peritoneal signs. Musculoskeletal: Normal active ROM of all extremities, atraumatic. Neurological: Alert, appropriate, and interactive. The patient has normal DTRs and non-focal cranial nerves, motor, sensory, and cerebellar exam. Skin: No rashes, good turgor, no nodules on palpation. Past medical history: Goldsboro's disease and Wai's disease Past surgical history: Denies Family history: Denies Social history: at bedside, lives in [place], retired DIAGNOSTICS/PROCEDURES/CRITICAL CARE TIME: Not indicated. DIFFERENTIAL DIAGNOSIS: The differential diagnosis for the patient's nausea and vomiting included but was not limited to gastroenteritis, gastritis, appendicitis, and medication side effect. MEDICAL DECISION MAKING: The patient is a 68 y/o female with a history of Shade's disease and Wai 's complaining of an Goldsboro's attack after developing a stomach flu. With prior Goldsboro's attack the patient received hydrocortisone and an H2 silke which alleviated her symptoms. Her physical exam is unremarkable although she is anxious. Labs ordered; 100mg IV Hydrocortisone, 40mg IV Pepcid, 4mg IV Zofran and 2L IV NS. 1131: Patient's labs are unremarkable. 1211: Reassessed the patient and discussed laboratory findings. She is feeling much better after medications. She is not having an Addisonian crisis. PO trial started. Return precautions provided; patient is comfortable with this plan. 1240: Patient passed her PO trial. She is safe to be discharged home with Zofran. - Data Points Laboratory Results: Laboratory Results 01/11/19 10:25 01/11/19 10:25 01/11/19 01/11/19 10:25 10:25 WBC 5.93 10^3/uL 10^3/uL (3.80-9.50) RBC 5.29 10^6/uL 10^6/uL (4.18-5.33) Hgb 16.2 g/dL g/dL (12.6-16.3) Hct 46.8 % % (38.0-47.0) MCV 88.5 fL fL (81.5-99.8) MCH 30.6 pg pg (27.9-34.1) MCHC 34.6 g/dL g/dL (32.4-36.7) RDW 12.9 % % (11.5-15.2) Plt Count 206 10^3/uL 10^3/uL (150-400) MPV 9.9 fL fL (8.7-11.7) Neut % (Auto) 81.8 % H % (39.3-74.2) Lymph % (Auto) 11.3 % L % (15.0-45.0) [place] % (Auto) 3.9 % L % (4.5-13.0) Eos % (Auto) 2.5 % % (0.6-7.6) Baso % (Auto) 0.3 % % (0.3-1.7) Nucleat RBC Rel Count 0.0 % % (0.0-0.2) Absolute Neuts (auto) 4.85 10^3/uL 10^3/uL (1.70-6.50) Absolute Lymphs (auto) 0.67 10^3/uL L 10^3/uL (1.00-3.00) Absolute Monos (auto) 0.23 10^3/uL L 10^3/uL (0.30-0.80) Absolute Eos (auto) 0.15 10^3/uL 10^3/uL (0.03-0.40) Absolute Basos (auto) 0.02 10^3/uL 10^3/uL (0.02-0.10) Absolute Nucleated RBC 0.00 10^3/uL 10^3/uL (0-0.01) Immature Gran % 0.2 % % (0.0-1.1) Immature Gran # 0.01 10^3/uL 10^3/uL (0.00-0.10) Sodium 136 mEq/L mEq/L (135-145) Potassium 3.9 mEq/L mEq/L (3.5-5.2) Chloride 104 mEq/L mEq/L (97-110) Carbon Dioxide 23 mEq/l mEq/l (22-31) Anion Gap 9 mEq/L mEq/L (6-14) BUN 21 mg/dL mg/dL (7-23) Creatinine 0.8 mg/dL mg/dL (0.6-1.0) Estimated GFR > 60 Glucose 99 mg/dL mg/dL (70-100) Calcium 9.8 mg/dL mg/dL (8.5-10.4) Total Bilirubin 0.9 mg/dL mg/dL (0.1-1.4) Conjugated Bilirubin 0.2 mg/dL mg/dL (0.0-0.5) Unconjugated Bilirubin 0.7 mg/dL mg/dL (0.0-1.1) AST 31 IU/L IU/L (14-46) ALT 27 IU/L IU/L (9-52) Alkaline Phosphatase 84 IU/L IU/L (38-126) Total Protein 7.3 g/dL g/dL (6.3-8.2) Albumin 4.5 g/dL g/dL (3.5-5.0) Lipase 150 IU/L IU/L (23-300) Medications Given: Discontinued Medications Famotidine (Pepcid) 40 mg IVP EDNOW ONE Stop: 01/11/19 10:12 Last Admin: 01/11/19 10:21 Dose: 40 mg Hydrocortisone (Solucortef) 100 mg IVP EDNOW ONE Stop: 01/11/19 10:10 Last Admin: 01/11/19 10:20 Dose: 100 mg Sodium Chloride (Ns) 1,000 mls @ 0 mls/hr IV EDNOW ONE; Wide Open PRN Reason: Protocol Stop: 03/08/19 10:12 Last Admin: 01/11/19 10:20 Dose: 1,000 mls Sodium Chloride (Ns) 1,000 mls @ 0 mls/hr IV EDNOW ONE; Wide Open PRN Reason: Protocol Stop: 01/11/19 10:12 Last Admin: 01/11/19 10:21 Dose: 1,000 mls Ondansetron HCl (Zofran) 4 mg IVP EDNOW ONE Stop: 01/11/19 10:19 Last Admin: 01/11/19 10:21 Dose: 4 mg Departure - Departure Disposition: Home, Routine, Self-Care Clinical Impression: Gastroenteritis Nausea & vomiting Qualifiers: Vomiting type: unspecified Vomiting Intractability: intractable Qualified Code( s): R11.2 - Nausea with vomiting, unspecified Condition: Good Instructions: Gastroenteritis (ED), Acute Nausea and Vomiting (ED) Additional Instructions: 1. Follow up with your primary care physician within 72 hours for reevaluation. 2. Drink plenty of fluids. Take Zofran as prescribed. 3. Return to the emergency department immediately for high fever, severe headache or neck pain, difficulty breathing, abdominal pain, rash or other worsening of condition. Referrals: Daria Arrington MD [Primary Care Provider] - As per Instructions Prescriptions: Ondansetron Odt [Zofran Odt 4 mg (RX)] 4 mg PO Q4 PRN #10 tab PRN Reason: Nausea/Vomiting, Use 1st Report Scribed for: Mario Wang Report Scribed by: Christina Sauceda Date of Report: 01/11/19 Time of Report: 10:08
[2019-01-11] MEDS ORDERED: HYDROCORTISONE 100 MG/2 ML VIAL IVP ONE (10:09)
[2019-01-11] MEDS ORDERED: NS 1,000 ML IV ONE ×2 (10:11)
[2019-01-11] MEDS ORDERED: FAMOTIDINE 20 MG/2 ML SDV IVP ONE (10:11)
[2019-01-11] MEDS ORDERED: ONDANSETRON 4 MG/2 ML VIAL IVP ONE (10:18)
[2019-01-11 10:39] LABS: PLATELET COUNT 206 10^3/uL (150-400)
[2019-01-11 12:43] VITALS: BP 108/75
== END 2019-01-11 12:53 | disposition home or self-care (01) ==
DX: K52.9 Noninfective gastroenteritis and colitis, unspecified (principal); E86.9 Volume depletion, unspecified; E27.1 Primary adrenocortical insufficiency; E06.3 Autoimmune thyroiditis; E03.9 Hypothyroidism, unspecified; Z88.0 Allergy status to penicillin
CPT/HCPCS: 96361; 96374; 96375; 99284; J1720; J2405

== ENCOUNTER 2019-01-12 09:44 | Observation (INO) | payer OTHER ==
[2019-01-12] MEDS ORDERED: NS 1,000 ML IV ONE ×4 (10:24→19:48)
--- NOTE | 2019-01-12 10:46 | EDPHY ---
HPI/HX/ROS/PE/MDM Narrative: CHIEF COMPLAINT: "I am still having and Shade's attack." HPI: The patient is a 60-year-old female with a history of Wai's and Robeson's disease. She was evaluated in the emergency department yesterday for several days of nausea, vomiting and diarrhea which she attributed to GI flu followed by addisonian crisis. It sounds like Dr. Wang did not think this was a true Shade's crisis but did give the patient IV hydrocortisone and Pepcid at her request. The patient felt better and was able to go home. She returns this morning for continued severe weakness and dehydration. She believes that she is still having an Addisononian crisis. She denies abdominal pain. She denies recent antibiotic use or travel. She states this feels similar to when she gets sick in the past. REVIEW OF SYSTEMS: Aside from elements discussed in the HPI, a comprehensive 10-point review of systems was reviewed and is negative. PMH: Includes Wai's disease, Robeson's disease. SOCIAL HISTORY: Denies alcohol or drug abuse. PHYSICAL EXAM: General:Patient is alert, in no acute distress. ENT:Eyes are normal to inspection. ENT inspection normal. Neck: Normal inspection. Full range of motion. Respiratory:No respiratory distress. Breath sounds normal bilaterally. Cardiovascular: Regular rate and rhythm. Strong peripheral pulses. Normal cap refill. Abdomen:The abdomen is nontender to palpation. There are no peritoneal signs. There are normal bowel sounds. Back: Normal to inspection. No tenderness to palpation. Skin: Normal color. No rash. Warm and dry. Extremities: Normal appearance. Full range of motion. Neuro: Oriented x3. Normal motor function. Normal sensory function. MDM: This patient presents with continued nausea, vomiting and diarrhea consistent with viral gastroenteritis. I have very low suspicion for abdominal pathology such as bowel obstruction, bowel perforation, appendicitis, diverticulitis. The patient states that her symptoms are exacerbated by her Robeson's disease. I think that this is somewhat unlikely given the fact that she received an IV dose of steroids yesterday, but given this complicating factor as well as the fact the patient states she is unable fully tolerate fluids by mouth, she will require at least an observation admission. - Data Points Medications Given: Discontinued Medications Sodium Chloride (Ns) 1,000 mls @ 0 mls/hr IV ONCE ONE; Wide Open PRN Reason: Protocol Stop: 01/12/19 10:25 Last Admin: 01/12/19 10:26 Dose: 1,000 mls General Time Seen by Provider: 01/12/19 10:41 Initial Vital Signs: Initial Vital Signs Heart Rate 82 01/12/19 09:47 Respiratory Rate 16 01/12/19 09:47 Blood Pressure 167/90 H 01/12/19 09:47 O2 Sat (%) 99 01/12/19 09:47 O2 Delivery Mode Room Air O2 (L/minute) 36.6 Allergies/Adverse Reactions: Penicillins Allergy (Mild, Verified 01/11/19 10:01) Rash Home Medications: Medication Instructions Recorded Fludrocortisone Acetate [Florinef] 0.05 mg PO BID 09/17/17 Hydrocortisone [Cortef] 5 mg PO HS 01/12/19 Hydrocortisone [Cortef] 10 mg PO DAILY 01/12/19 Levothyroxine [Synthroid 125 mcg 125 mcg PO DAILY06 01/12/19 (*)] Departure - Departure Disposition: [facility] Acute Condition: Good
[2019-01-12] MEDS ORDERED: HYDROCORTISONE 100 MG/2 ML VIAL IVP ONE (10:55)
[2019-01-12] MEDS ORDERED: FAMOTIDINE 20 MG/2 ML SDV IVP ONE (10:56)
[2019-01-12 11:01] LABS: PLATELET COUNT 153 10^3/uL (150-400)
[2019-01-12] MEDS ORDERED: ONDANSETRON 4 MG/2 ML VIAL IVP PRN (12:28)
[2019-01-12] MEDS ORDERED: ONDANSETRON DISINTEGRATING 4 MG TAB PO PRN (12:28)
[2019-01-12] MEDS ORDERED: ACETAMINOPHEN 325 MG TAB PO PRN (12:28)
--- NOTE | 2019-01-12 12:37 | PDGENHP ---
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 She was in her usual state of health, but woke up yesterday morning with abdominal pain and cramping. She then developed vomiting and diarrhea. No blood in vomitus or stool. No known fevers. +sick contact: her father had diarrhea last weekend and she cleaned it up. No abnormal food exposures. No recent atbx or travel. She came to ED yesterday am and received anti-emetics and IV hydrocortisone. She felt better and went home, but was unable to maintain oral intake. This morning, she had recurrent watery diarrhea and felt weak, dizzy and lightheaded so returned to ED. 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 T12/L1 compression injuries - Surgical History Reports: no pertinent surgical hx - Family History Additional family history: Mother in her 80s, complications of dementia - Social History Smoking Status: Never smoked Alcohol Use: None Drug Use: None Additional social history: , 2 children, retired Review of Systems Review of Systems: ROS: 10pt was reviewed & negative except for what was stated in HPI & below Physical Exam Physical Exam: Temp Pulse Resp BP Pulse Ox 37.6 C 76 16 90/55 L 92 01/12/19 12:30 01/12/19 12:30 01/12/19 12:30 01/12/19 12:30 01/12/19 12:30 Constitutional: no apparent distress Eyes: PERRL Ears, Nose, Mouth, Throat: moist mucous membranes Cardiovascular: regular rate and rhythym Respiratory: no respiratory distress, clear to auscultation Gastrointestinal: normoactive bowel sounds, soft, non-tender abdomen Skin: warm Musculoskeletal: full muscle strength Neurologic: AAOx3 Psychiatric: interacting appropriately Lab Data & Imaging Review 01/12/19 10:25 01/12/19 10:25 WBC 4.05 10^3/uL (3.80-9.50) 01/12/19 10:25 RBC 4.40 10^6/uL (4.18-5.33) 01/12/19 10:25 Hgb 13.4 g/dL (12.6-16.3) 01/12/19 10:25 Hct 39.0 % (38.0-47.0) 01/12/19 10:25 MCV 88.6 fL (81.5-99.8) 01/12/19 10:25 MCH 30.5 pg (27.9-34.1) 01/12/19 10:25 MCHC 34.4 g/dL (32.4-36.7) 01/12/19 10:25 RDW 13.3 % (11.5-15.2) 01/12/19 10:25 Plt Count 153 10^3/uL (150-400) 01/12/19 10:25 MPV 10.4 fL (8.7-11.7) 01/12/19 10:25 Neut % (Auto) 50.4 % (39.3-74.2) 01/12/19 10:25 Lymph % (Auto) 37.8 % (15.0-45.0) 01/12/19 10:25 Dixie % (Auto) 8.4 % (4.5-13.0) 01/12/19 10:25 Eos % (Auto) 2.5 % (0.6-7.6) 01/12/19 10:25 Baso % (Auto) 0.7 % (0.3-1.7) 01/12/19 10:25 Nucleat RBC Rel Count 0.0 % (0.0-0.2) 01/12/19 10:25 Absolute Neuts (auto) 2.04 10^3/uL (1.70-6.50) 01/12/19 10:25 Absolute Lymphs (auto) 1.53 10^3/uL (1.00-3.00) 01/12/19 10:25 Absolute Monos (auto) 0.34 10^3/uL (0.30-0.80) 01/12/19 10:25 Absolute Eos (auto) 0.10 10^3/uL (0.03-0.40) 01/12/19 10:25 Absolute Basos (auto) 0.03 10^3/uL (0.02-0.10) 01/12/19 10:25 Absolute Nucleated RBC 0.00 10^3/uL (0-0.01) 01/12/19 10:25 Immature Gran % 0.2 % (0.0-1.1) 01/12/19 10:25 Immature Gran # 0.01 10^3/uL (0.00-0.10) 01/12/19 10:25 Sodium 132 mEq/L (135-145) L 01/12/19 10:25 Potassium 3.4 mEq/L (3.5-5.2) L 01/12/19 10:25 Chloride 104 mEq/L (97-110) 01/12/19 10:25 Carbon Dioxide 22 mEq/l (22-31) 01/12/19 10:25 Anion Gap 6 mEq/L (6-14) 01/12/19 10:25 BUN 17 mg/dL (7-23) 01/12/19 10:25 Creatinine 0.9 mg/dL (0.6-1.0) 01/12/19 10:25 Estimated GFR > 60 01/12/19 10:25 Glucose 87 mg/dL (70-100) 01/12/19 10:25 Calcium 8.4 mg/dL (8.5-10.4) L 01/12/19 10:25 Total Bilirubin 0.6 mg/dL (0.1-1.4) 01/12/19 10:25 Conjugated Bilirubin 0.1 mg/dL (0.0-0.5) 01/12/19 10:25 Unconjugated Bilirubin 0.5 mg/dL (0.0-1.1) 01/12/19 10:25 AST 27 IU/L (14-46) 01/12/19 10:25 ALT 23 IU/L (9-52) 01/12/19 10:25 Alkaline Phosphatase 56 IU/L (38-126) 01/12/19 10:25 Total Protein 5.6 g/dL (6.3-8.2) L 01/12/19 10:25 Albumin 3.3 g/dL (3.5-5.0) L 01/12/19 10:25 Nasal Influenza A PCR NEGATIVE FOR FLU A (NEGATIVE) 01/12/19 11:20 Nasal Influenza B PCR NEGATIVE FOR FLU B (NEGATIVE) 01/12/19 11:20 Assessment & Plan Assessment: N/V and Diarrhea - unclear if this represents Northumberland's crisis vs gastroenteritis, favor the latter given she is normotensive and otherwise stable. 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
[2019-01-12] MEDS: NS W/ 20 KCl/L 1,000 ML IV SCH (12:56)
[2019-01-12] MEDS ORDERED: FLUDROCORTISONE ACETATE 0.1 MG TAB PO SCH ×3 (14:43→21:00)
[2019-01-12] MEDS ORDERED: FLUDROCORTISONE ACETATE 0.1 MG TAB PO ONE (16:15)
[2019-01-12] MEDS ORDERED: HYDROCORTISONE 100 MG/2 ML VIAL IVP SCH (19:00)
[2019-01-12] MEDS ORDERED: PANTOPRAZOLE SODIUM 40 MG TAB PO SCH (19:45)
[2019-01-12] MEDS: HYDROCORTISONE 100 MG/2 ML VIAL IVP SCH (19:59)
[2019-01-13] MEDS: HYDROCORTISONE 100 MG/2 ML VIAL IVP SCH ×2 (03:12→10:01)
[2019-01-13] MEDS: NS W/ 20 KCl/L 1,000 ML IV SCH (04:24)
[2019-01-13] MEDS ORDERED: FLUDROCORTISONE ACETATE 0.1 MG TAB PO SCH (04:30)
[2019-01-13] MEDS ORDERED: LEVOTHYROXINE 125 MCG TAB PO SCH (06:00)
[2019-01-13] MEDS ORDERED: ENOXAPARIN 40 MG/0.4 ML SYR SC SCH (09:00)
[2019-01-13] MEDS ORDERED: PANTOPRAZOLE SODIUM 40 MG TAB PO SCH (09:00)
--- NOTE | 2019-01-13 11:43 | ASMTCMCOM ---
CM Note CM Note Notes: Reviewed chart. Pt presented to the Emergency Department with complaints of nausea, vomiting x 2 days. History includes Wai's and Canby's disease, hypothyroid, chronic sacral/knee pain, T12/L1 compression injuries. Pt is and lives with her in [place]. Pt admitted for further evaluation and treatment. Discharge orders remain unclear at this time. No PT/OT evals. Anticipate pt will likely discharge home independently with family support when medically stable. CM will continue to follow. Discharge Plan: Likely independent Date Signed: 01/13/2019 11:43 AM Electronically Signed By:Shayy Simms RN
[2019-01-13 12:34] VITALS: BP 92/52
[2019-01-13] MEDS ORDERED: HYDROCORTISONE 100 MG/2 ML VIAL IVP ONE (13:00)
--- NOTE | 2019-01-13 14:31 | ASDISCHSUM ---
Discharge Information Plan Status:Home with No Needs Medically Cleared to Leave:01/12/2019 Discharge Date:01/13/2019 02:29 PM CM D/C Disposition:Home, Routine, Self-Care ADT D/C Disposition:Home, Routine, Self-Care Projected Discharge Date:01/13/2019 12:00 AM Transportation at D/C:Family Discharge Delay Reason: Follow-Up Date:01/13/2019 12:00 AM Discharge Slot:2 - 12:01 pm - 18:00 pm Final Diagnosis: Placement Information Patient Contact Information Contact Name:LITO Relationship: Address:[address] Home Phone: City:[place] Alternate Phone: State/Zip Code:[place] [address] Email: Financial Information Financial Class:Medicare Primary Plan Desc:MEDICARE OUTPATIENT Primary Plan Number:[id number] Secondary Plan Desc:[facility] [place] Secondary Plan Number:[id number] Assessment Information [facility] CM Progress Note CM Note CM Note Notes: Reviewed chart. Pt presented to the Emergency Department with complaints of nausea, vomiting x 2 days. History includes Wai's and Shade's disease, hypothyroid, chronic sacral/knee pain, T12/L1 compression injuries. Pt is and lives with her in [place]. Pt admitted for further evaluation and treatment. Discharge orders remain unclear at this time. No PT/OT evals. Anticipate pt will likely discharge home independently with family support when medically stable. CM will continue to follow. Discharge Plan: Likely independent Date Signed: 01/13/2019 11:43 AM Electronically Signed By:Shayy Simms RN Intervention Information Intervention Type:*IM-Signed Date of Service:01/13/2019 02:29 PM Patient Type:Observation Staff Member:Olviia Jara Hours: Discipline: Severity: Comment:CM explained and delivered IM, signed form placed in back of chart. Intervention Type:*RUGGIERO-Signed Date of Service:01/13/2019 02:30 PM Patient Type:Observation Staff Member:Olivia Jara Hours: Discipline: Severity: Comment:CM explained and delivered RUGGIEROosmane d form placed in back of chart.
--- NOTE | 2019-01-13 14:33 | ASMTDCNOTE ---
Case Management Discharge Discharge Order Complete? Answers: Yes Patient to Obtain Answers: via Family Medications Transportation Arranged Answers: Family/Friends Family Notified Answers: Yes Discharge Comments Notes: CM met with patient prior to discharge, patient to follow up as recommended. Family to transport home. SARAY and [employer]AHMAN delivered, explained, and patient signed for receipt, CM placed in back of chart. Patient to discharge home independent with no CM needs. Plan: Home independent Date Signed: 01/13/2019 02:32 PM Electronically Signed By:Olivia Jara
--- NOTE | 2019-01-13 20:51 | GDS ---
[f rep st] DISCHARGE SUMMARY DISCHARGE DIAGNOSES: 1. Norovirus. Condition improved. 2. Bolivar's disease. 3. Hypotension secondary to adrenal insufficiency, resolved. 4. Wai's. HISTORY OF DETAILS: Please see History and Physical dated January 12, 2019. In brief, the patient is a 68-year-old female with history of Bolivar's disease, who presented to the emergency department with nausea, vomiting and diarrhea for 2 days. Her GI PCR was positive for norovirus. She was admitted to the hospital for further management. HOSPITAL COURSE: The patient was admitted to the med/surg unit. She received IV fluids and supporti ve care in the setting of norovirus. Although, she was normotensive on arrival, she did develop some hypotension despite stress dose steroids. Her fludrocortisone was doubled to 0.1 mg twice daily and her hydrocortisone was changed to IV 100 mg q.8 hours. The following day, her symptoms dramatically improved. Her blood pressure was stable at 90s over 50s, which she states is her baseline. She is able to tolerate a full diet. Her pain is resolved. She wishes to go home. DISPOSITION: Patient is discharged home in stable condition. FOLLOWUP: I recommend she follow up with her ship's captain tomorrow for further recommendations re garding steroid dosing. She should also follow up with her primary care physician, Dr. Daria Arrington. DISCHARGE MEDICATIONS: Please see Nativo for completed medication list. She will continue her flu drocortisone and hydrocortisone as well as levothyroxine. I recommend she continue double dose of Fl orinef 0.1 mg twice daily for 3 days and also increase her hydrocortisone to 40 mg twice daily for 2 days, then 20 mg twice daily for 2 days, and then return to her home regimen. I also advised she call her ship's captain tomorrow for his dosing recommendations as she recovers f rom her acute illness. /[id number]/MODL
== END 2019-01-13 14:29 | disposition home or self-care (01) ==
LOC: F3E 12:41
PROVIDERS: ADMIT Hospitalist; ATTEND Hospitalist
DX: A08.11 Acute gastroenteropathy due to Norwalk agent (principal); E86.0 Dehydration; E27.1 Primary adrenocortical insufficiency; E06.3 Autoimmune thyroiditis; I95.9 Hypotension, unspecified
CPT/HCPCS: G0378; J1720; 96374; J1650

== ENCOUNTER → 2019-04-09 | Outpatient (CLI) | payer OTHER | LOC: BMCIMAGING 11:27 ==